=== PATIENT | female | born 1935 | race Caucasian/White ===

== ENCOUNTER 2022-12-16 23:04 | Inpatient (IN) ==
[2022-12-16] MEDS ORDERED: SODIUM CHLORIDE 0.9% 500 ML IV SCH (23:45)
[2022-12-16] MEDS ORDERED: ONDANSETRON INJ 2 MG/ML 2 ML VIAL IV STA (23:47)
[2022-12-16] MEDS ORDERED: MoRPHine SULFATE 4 MG/ML 1 ML CARP\\VIAL IV STA (23:47)
--- NOTE | 2022-12-17 00:03 | Emergency Department Note ---
Impression & Plan Fall, Abdominal pain, Low back pain, Closed head injury ED Provider Note CHIEF COMPLAINT: Fall HISTORY OF PRESENT ILLNESS: This 87-year-old female patient presents to the emergency department accompanied by her daughters for evaluation after a fall. Patient was bending over to adjust her pant leg when she tipped forward and fell. Unclear exactly how she landed when she fell or if she may have struck anything on the way down. The fall was witnessed by the , but he was uncertain of the details. The patient has been complaining of back and abdominal pain, particularly in her right side. She did strike her head. She is not on blood thinners or aspirin. She is complaining of soreness in her neck. The patient was ambulatory after the event but did need significant assistance from her daughters. The patient did take Tylenol prior to arrival in the emergency department. The fall occurred approximately 3 hours prior to evaluation. She has not recently been ill. She does have history of Alzheimer's and history is difficult to obtain. She denies any chest pain or shortness of breath. She has otherwise been in her usual state of health up until the fall tonight. REVIEW OF SYSTEMS: A 10 system review of systems was performed with positives and pertinent negatives listed in the history of present illness. All other systems were reviewed and are negative. ALLERGIES: Penicillin PHYSICAL EXAM: VITALS: Vitals are noted on the nurse's note and reviewed by myself. Vital signs stable. GENERAL: This is an 87-year-old female, in no acute distress, nondiaphoretic, well-developed well-nourished. SKIN: The skin was without rashes, erythema, edema, or bruising. There is no tenting of the skin. Capillary refill less than 2 seconds. HEAD: Normocephalic atraumatic. EARS: External auditory canals clear, tympanic membranes pearly mallory without erythema or effusion bilaterally. No hemotympanum. Negative goff sign. EYES: Pupils equal round and reactive to light and accommodation. Conjunctivae without injection, sclerae without icterus. Extraocular movements intact. No swelling or discoloration of the tissue surrounding the eyes. NOSE: Patent, turbinates without inflammation or discharge. No sinus tenderness. MOUTH: Mucous membranes moist. Tonsils are not enlarged. Pharynx without erythema or exudate. Uvula midline. Airway patent. Tongue does not deviate. NECK: Supple without nuchal rigidity. No lymphadenopathy. Cervical spine is tender. No JVD. HEART: Regular rate and rhythm without murmurs gallops or rubs. LUNGS: Clear to auscultation bilaterally without wheezes, rales or rhonchi. No retractions or accessory muscle use. ABDOMEN: Positive bowel sounds x 4. Diffuse abdominal tenderness to palpation. Abdomen is otherwise soft, without masses or organomegaly. Rodriguez sign negative. No guarding or rebound tenderness. MUSCULOSKELETAL: No muscle atrophy, erythema, or edema noted. Full range of motion without joint tenderness in all extremities. Tenderness of the lumbar spinous processes to palpation. Strength 5/5 throughout. NEURO: Patient was alert and oriented to person place and time. Normal sensation to light and sharp touch. Deep tendon reflexes 2+ throughout. No focal neurological deficits. EKG, per my interpretation: Normal sinus rhythm with sinus arrhythmia with a ventricular rate of [address] elevation or depression. No T wave inversion. No significant change when compared to EKG from 09/03/2022 EMERGENCY DEPARTMENT COURSE: The patient was seen and evaluated as above. Patient presents after a fall. She does have a history of dementia and history is difficult to elicit. She is complaining of severe abdominal and back pain. Due to the uncertain mechanism of the fall, I did recommend CT imaging to evaluate for intra-abdominal, intrathoracic, and intracranial abnormality. IV access obtained, labs drawn. Labs reviewed by myself. No leukocytosis, anemia, thrombocytopenia. Renal, hepatic function and electrolytes without significant abnormality. The patient and family members were agreeable. CT imaging was performed reviewed by myself and radiologist as noted. Patient has fractures of the right 11th and 12th ribs. Patient required 2 doses of IV morphine, lidocaine patch, in addition to the acetaminophen she had taken at home for pain control. I am concerned with sending the patient home that she will not do well due to the history of dementia and her current pain management requirements. I do feel that she would benefit from an inpatient stay for PT/OT eval, pain control, and ensuring she has a safe disposition. The patient and family members were agreeable with this plan. The patient will be admitted to the [facility] Hospitalist service. Please see hospitalist dictation regarding ongoing management care of this patient. I did discuss case with my attending physician. We were in agreement of the treatment plan. Differential diagnosis includes fracture, dislocation, contusion, intra- abdominal, pneumothorax, intrathoracic, intracranial, neurologic, compartment syndrome, rhabdomyolysis, as well as other pathologies. I attest that I have personally reviewed the patient's current medication list. Blood Pressure Screening: Patient was found to have a slightly elevated blood pressure due to circumstances. I do not believe that the patient requires hypertension monitoring. The chart was completed utilizing [employer] voice recognition software. Grammatical errors, random word insertions, pronoun errors, and incomplete sentences are an occasional consequence of this system due to software limitations, ambient noise, and hardware issues. Any formal questions or concerns about the content, text, or information contained within the body of this dictation should be directly addressed to the provider for clarification. Past Med/Surg History Medical History Dementia Hypothyroid Social History Smoking Status: Never smoker Preferred Language: Spanish Feels Safe at Home: Yes Allergies Allergies Allergy/AdvReac Type Severity Reaction Status Date / Time Penicillins Allergy Unknown CAN'T Verified 12/17/22 02:21 REMEMBER Home Meds Home Medications Medication Instructions Recorded Confirmed Melatonin Chew 1 tab PO HS 12/17/22 12/17/22 Metamucil Chew 1 tab PO DAILY 12/17/22 12/17/22 levothyroxine 88 mcg tablet 88 mcg PO DAILY 12/17/22 12/17/22 omeprazole 20 mg tablet,delayed 20 mg PO DAILY 12/17/22 12/17/22 release propranolol 60 mg capsule,24 60 mg PO QAM 12/17/22 12/17/22 hr,extended release Results & Data (ED) Vital Signs Vital Signs - 24 hr 12/16/22 23:17 12/16/22 23:37 12/17/22 00:10 Temperature 36.6 C Temperature Source Temporal Artery Scan Pulse Rate 65 63 58 L Pulse Rate [Apical] Respiratory Rate 20 19 19 Respiratory Effort / Characteristics Respiratory Depth Normal Respiratory Pattern Blood Pressure 187/99 H 164/105 H Blood Pressure [Right Arm] Blood Pressure Mean 128 124 Blood Pressure Mean [Right Arm] Pulse Oximetry 98 92 94 Oxygen Delivery Method Room Air Room Air Room Air Sepsis Recent Fever Within 48 Hours No Sepsis New/Unexplained Change in Mental Status No Sepsis Action Taken by Nursing No Action Required 12/17/22 00:20 12/17/22 00:50 12/17/22 01:10 Temperature Temperature Source Pulse Rate 64 64 66 Pulse Rate [Apical] Respiratory Rate 15 18 18 Respiratory Effort / Characteristics Respiratory Depth Respiratory Pattern Blood Pressure Blood Pressure [Right Arm] Blood Pressure Mean Blood Pressure Mean [Right Arm] Pulse Oximetry 92 96 92 Oxygen Delivery Method Room Air Room Air Room Air Sepsis Recent Fever Within 48 Hours Sepsis New/Unexplained Change in Mental Status Sepsis Action Taken by Nursing 12/17/22 01:30 12/17/22 02:00 12/17/22 02:40 Temperature Temperature Source Pulse Rate 65 65 Pulse Rate [Apical] 69 Respiratory Rate 17 17 16 Respiratory Effort / Characteristics Non-Labored Spontaneous Respiratory Depth Normal Respiratory Pattern Regular Blood Pressure Blood Pressure [Right Arm] 145/91 H Blood Pressure Mean Blood Pressure Mean [Right Arm] 109 Pulse Oximetry 92 96 Oxygen Delivery Method Room Air Room Air Sepsis Recent Fever Within 48 Hours Sepsis New/Unexplained Change in Mental Status Sepsis Action Taken by Nursing Laboratory Data 12/16/22 23:35 12/16/22 23:35 Lab Results 12/16/22 12/16/22 12/16/22 Range/Units 23:35 23:35 23:35 WBC 9.37 (4.8-10.8) K/ul RBC 5.08 (4.20-5.40) M/uL Hgb 15.8 (12.0-16.0) g/dl Hct 46.2 (37.0-47.0) % MCV 90.9 (80.0-100.0) fL MCH 31.1 (25.0-34.0) pg MCHC 34.2 (32.0-36.0) g/dL RDW Std Deviation 47.6 H (36.4-46.3) fL RDW Coeff of Les 14.2 (11.5-14.5) % Plt Count 240 (130-400) K/uL MPV 10.7 (9.4-12.4) fL Immature Gran % (Auto) 0.5 % Neut % (Auto) 52.8 % Lymph % (Auto) 31.8 % Garrett % (Auto) 12.9 % Eos % (Auto) 1.1 % Baso % (Auto) 0.9 % Neut # (Auto) 4.95 (1.40-6.50) K/uL Lymph # (Auto) 2.98 (1.2-3.4) K/uL Garrett # (Auto) 1.21 H (0.11-0.59) K/uL Eos # (Auto) 0.10 (0-0.50) K/uL Baso # (Auto) 0.08 (0-0.2) K/uL Immature Gran # (Auto) 0.05 (0.01-0.20) K/uL PT 10.6 (9.0-12.0) Seconds INR 1.0 (0.9-1.1) Sodium 138 (136-145) mmol/L Potassium 4.4 (3.5-5.1) mmol/L Chloride 104 (98-107) mmol/L Carbon Dioxide 25 (21-32) mmol/L Anion Gap 9 (3-11) BUN 22 (6-23) mg/dl Creatinine 0.91 (0.6-1.2) mg/dl Est Cr Clr Drug Dosing Not Reportable Est GFR ( Amer) 66.2 ml/min Est GFR (Non-Af Amer) 57.1 ml/min BUN/Creatinine Ratio 24.2 H (10-20) Glucose 114 H (70-99(Fasting)) mg/dl Calcium 9.6 (8.6-10.3) mg/dl Total Bilirubin 0.5 (0.2-1.0) mg/dl AST 19 (13-39) U/L ALT 14 (7-52) U/L Alkaline Phosphatase 72 (34-104) U/L Total Protein 7.4 (6.0-8.3) gm/dl Albumin 4.2 (3.4-5.0) gm/dl Globulin 3.2 (2.5-4.0) gm/dl Albumin/Globulin Ratio 1.3 (0.9-2) SARS-CoV-2, RNA, NAAT (NEGATIVE) 12/17/22 Range/Units 02:07 WBC (4.8-10.8) K/ul RBC (4.20-5.40) M/uL Hgb (12.0-16.0) g/dl Hct (37.0-47.0) % MCV (80.0-100.0) fL MCH (25.0-34.0) pg MCHC (32.0-36.0) g/dL RDW Std Deviation (36.4-46.3) fL RDW Coeff of Les (11.5-14.5) % Plt Count (130-400) K/uL MPV (9.4-12.4) fL Immature Gran % (Auto) % Neut % (Auto) % Lymph % (Auto) % Garrett % (Auto) % Eos % (Auto) % Baso % (Auto) % Neut # (Auto) (1.40-6.50) K/uL Lymph # (Auto) (1.2-3.4) K/uL Garrett # (Auto) (0.11-0.59) K/uL Eos # (Auto) (0-0.50) K/uL Baso # (Auto) (0-0.2) K/uL Immature Gran # (Auto) (0.01-0.20) K/uL PT (9.0-12.0) Seconds INR (0.9-1.1) Sodium (136-145) mmol/L Potassium (3.5-5.1) mmol/L Chloride (98-107) mmol/L Carbon Dioxide (21-32) mmol/L Anion Gap (3-11) BUN (6-23) mg/dl Creatinine (0.6-1.2) mg/dl Est Cr Clr Drug Dosing Est GFR ( Amer) ml/min Est GFR (Non-Af Amer) ml/min BUN/Creatinine Ratio (10-20) Glucose (70-99(Fasting)) mg/dl Calcium (8.6-10.3) mg/dl Total Bilirubin (0.2-1.0) mg/dl AST (13-39) U/L ALT (7-52) U/L Alkaline Phosphatase (34-104) U/L Total Protein (6.0-8.3) gm/dl Albumin (3.4-5.0) gm/dl Globulin (2.5-4.0) gm/dl Albumin/Globulin Ratio (0.9-2) SARS-CoV-2, RNA, NAAT NEGATIVE (NEGATIVE) Administered Medications Sodium Chloride (Nss 1000ml) 1,000 mls @ 50 mls/hr IV .Q20H STA Stop: 12/17/22 23:09 Last Admin: 12/17/22 03:35 Dose: 50 mls/hr Documented By: LAUREN Discontinued Medications Acetaminophen (Acetaminophen 325 Mg Tab) 650 mg PO ONE STA Stop: 12/17/22 03:14 Last Admin: 12/17/22 03:36 Dose: 650 mg Documented By: LAUREN Sodium Chloride (Nss) 500 mls @ 999 mls/hr IV .Q31M MARY Stop: 12/17/22 00:15 Last Infusion: 12/17/22 02:19 Dose: 0 mls/hr Documented By: Admin: 12/17/22 00:14 Dose: 999 mls/hr Documented By: KATELYN Ioversol (Optiray 320 100ml) 100 ml IV ONCE ONE Stop: 12/17/22 00:53 Last Admin: 12/17/22 00:52 Dose: 93 ml Documented By: JABARI Lidocaine (Lidocaine 5% 1 Patch) 1 patch TD NOW STA Stop: 12/17/22 01:31 Last Admin: 12/17/22 01:36 Dose: 1 patch Documented By: KATELYN Morphine Sulfate (Morphine Sulfate 4 Mg/Ml 1 Ml Carp\Vial) 2 mg IV NOW STA Stop: 12/16/22 23:48 Last Admin: 12/17/22 00:14 Dose: 2 mg Documented By: KATELYN Morphine Sulfate (Morphine Sulfate 2 Mg/Ml Carp) 2 mg IV NOW STA Stop: 12/17/22 01:32 Last Admin: 12/17/22 01:36 Dose: 2 mg Documented By: KATELYN Ondansetron HCl (Ondansetron Inj 2 Mg/Ml 2 Ml Vial) 4 mg IV NOW STA Stop: 12/16/22 23:48 Last Admin: 12/17/22 00:15 Dose: 4 mg Documented By: KATELYN Propranolol HCl (Propranolol Hcl 60 Mg [place]) 60 mg PO NOW STA Stop: 12/17/22 02:27 Last Admin: 12/17/22 03:35 Dose: 60 mg Documented By: LAUREN Imaging Data Radiologist's Impression: Abdomen/Pelvis CT 12/16/22 23:48 Exam(s): CT ABDOMEN + PELVIS With Contrast IV Amt: 93 ml optiray 320 EXAM: CT Abdomen and Pelvis With Intravenous Contrast CLINICAL HISTORY: Reason for exam: Trauma. TECHNIQUE: Axial computed tomography images of the abdomen and pelvis with intravenous contrast. CTDI is 13.99 mGy and DLP is 696.66 mGy-cm. Automated exposure control was utilized for the study. A dose lowering technique was utilized adhering to the principles of ALARA. CONTRAST: Patient received 93 ml optiray 320 of IV contrast COMPARISON: No relevant prior studies available. FINDINGS: Lung bases: Unremarkable. No mass. No consolidation. Mediastinum: Large hiatus hernia containing the majority of the stomach. ABDOMEN: Liver: No acute abnormality noted of the liver. Numerous calcified granulomas. Gallbladder and bile ducts: Unremarkable. No calcified stones. No ductal dilation. Pancreas: Unremarkable. No mass. No ductal dilation. Spleen: No splenomegaly. No acute abnormality noted of the spleen. Numerous calcified granulomas. Adrenals: Unremarkable. No mass. Kidneys and ureters: Unremarkable. No solid mass. No hydronephrosis. Stomach and bowel: Unremarkable. No obstruction. No mucosal thickening. PELVIS: Appendix: No findings to suggest acute appendicitis. Bladder: Unremarkable. No mass. Reproductive: Hysterectomy. ABDOMEN and PELVIS: Intraperitoneal space: Unremarkable. No free air. No significant fluid collection. Bones/joints: No acute fracture. No dislocation. Soft tissues: Unremarkable. Vasculature: Unremarkable. No abdominal aortic aneurysm. Lymph nodes: Unremarkable. No enlarged lymph nodes. IMPRESSION: No evidence of acute trauma to the abdomen and pelvis. Electronically signed by: Diomedes Hutchins MD 12/17/22 01:[address] 12/16/22 23:48 Exam(s): CT C SPINE EXAM: CT Cervical Spine Without Intravenous Contrast CLINICAL HISTORY: Reason for exam: Trauma. TECHNIQUE: Axial computed tomography images of the cervical spine without intravenous contrast. CTDI is 18.13 mGy and DLP is 328.79 mGy-cm. Automated exposure control was utilized for the study. A dose lowering technique was utilized adhering to the principles of ALARA. COMPARISON: No relevant prior studies available. FINDINGS: Vertebrae: Unremarkable. No acute fracture. No misalignment. Discs/spinal canal/neural foramina: Mild to moderate multilevel neural foraminal stenosis bilaterally. Advanced multilevel degenerative disc disease with extensive spur formation. Soft tissues: Unremarkable. IMPRESSION: No acute findings in the cervical spine. Electronically signed by: Diomedes Hutchins MD 12/17/22 01:[address] 12/16/22 23:48 Exam(s): CT CHEST With Contrast IV Amt: 93 ml optiray 320 EXAM: CT Chest With Intravenous Contrast CLINICAL HISTORY: Reason for exam: Trauma. TECHNIQUE: Axial computed tomography images of the chest with intravenous contrast. CTDI is 11.91 mGy and DLP is 408.51 mGy-cm. Automated exposure control was utilized for the study. A dose lowering technique was utilized adhering to the principles of ALARA. CONTRAST: Patient received 93 ml optiray 320 of IV contrast COMPARISON: No relevant prior studies available. FINDINGS: Lungs: Unremarkable. No mass. No consolidation. Pleural space: Unremarkable. No pneumothorax. No significant effusion. Heart: Unremarkable. No cardiomegaly. No significant pericardial effusion. No significant coronary artery calcifications. Mediastinum: Large hiatus hernia containing the majority of the stomach. Bones/joints: Acute fractures of the posterior right 11th and 12th ribs. Marked chronic deformity of the right humeral head and neck with probable chronic rotator cuff tear in the right shoulder. No dislocation. Soft tissues: Unremarkable. Vasculature: Unremarkable. No thoracic aortic aneurysm. Lymph nodes: Unremarkable. No enlarged lymph nodes. IMPRESSION: Acute fractures of the posterior 11th and 12th ribs on the right. No other evidence of acute trauma. Electronically signed by: Diomedes Hutchins MD 12/17/22 01:[address] 12/16/22 23:48 Exam(s): CT HEAD Without Contrast EXAM: CT Head Without Intravenous Contrast CLINICAL HISTORY: Reason for exam: Trauma. TECHNIQUE: Axial computed tomography images of the head/brain without intravenous contrast. CTDI is 36.43 mGy and DLP is 624.41 mGy-cm. Automated exposure control was utilized for the study. A dose lowering technique was utilized adhering to the principles of ALARA. COMPARISON: No relevant prior studies available. FINDINGS: Brain: Generalized cerebral volume loss and chronic, small vessel ischemic changes in the white matter. No acute edema, hemorrhage or abnormal mass-effect. Probable calcified 19 mm meningioma in the left frontoparietal region. Ventricles: The ventricles are prominent, likely on the basis of periventricular volume loss. Bones/joints: Unremarkable. No acute fracture. Soft tissues: Unremarkable. Sinuses: Unremarkable as visualized. No acute sinusitis. Mastoid air cells: Unremarkable as visualized. No mastoid effusion. IMPRESSION: No acute findings in the head/brain. Electronically signed by: Diomedes Hutchins MD 12/17/22 01:[address] 12/16/22 23:48 Exam(s): CT L SPINE With Contrast IV Amt: 93 ml optiray 320 EXAM: CT Lumbar Spine With Intravenous Contrast CLINICAL HISTORY: Reason for exam: Trauma. TECHNIQUE: Axial computed tomography images of the lumbar spine with intravenous contrast. CTDI is 13.99 mGy and DLP is 696.66 mGy-cm. Automated exposure control was utilized for the study. A dose lowering technique was utilized adhering to the principles of ALARA. CONTRAST: Patient received 93 ml optiray 320 of IV contrast COMPARISON: No relevant prior studies available. FINDINGS: Vertebrae: Moderate degree of lumbar levoscoliosis. Advanced degenerative arthropathy of the facet joints at multiple levels. Mild retrolisthesis of L1 on L2. Mild anterior spondylolisthesis of L4 on L5. No acute fracture. Discs/spinal canal/neural foramina: Advanced multilevel degenerative disc disease. No spinal canal stenosis. Soft tissues: Unremarkable. IMPRESSION: No acute findings in the lumbar spine. Electronically signed by: Diomedes Hutchins MD 12/17/22 01:[address] 12/16/22 23:48 Exam(s): CT T SPINE IV Amt: 93 ml optiray 320 EXAM: CT Thoracic Spine With Intravenous Contrast CLINICAL HISTORY: Reason for exam: Trauma. TECHNIQUE: Axial computed tomography images of the thoracic spine with intravenous contrast. CTDI is 11.91 mGy and DLP is 408.51 mGy-cm. Automated exposure control was utilized for the study. A dose lowering technique was utilized adhering to the principles of ALARA. CONTRAST: Patient received 93 ml optiray 320 of IV contrast COMPARISON: No relevant prior studies available. FINDINGS: Vertebrae: Unremarkable. No acute fracture. Discs/spinal canal/neural foramina: Moderate to advanced multilevel degenerative disc disease. No spinal canal stenosis. Ribs: Acute fractures of the posterior right 11th and 12th ribs. Soft tissues: Unremarkable. IMPRESSION: No acute findings in the thoracic spine. Acute fractures of the right posterior 11th and 12th ribs. Electronically signed by: Diomedes Hutchins MD 12/17/22 01:29 AM Discharge Plan Visit Data Chief Complaint: Fall Stated Complaint: SLIPPED AND FELL ED Provider: Khalif Dorado ED Midlevel Provider: Argelia Arroyo Discharge Problem: Fall, Abdominal pain, Low back pain, Closed head injury Patient Disposition: Admitted As Inpatient Forms Stand Alone Forms: My [facility], Virtual Emergency Department, Important Visit Information Prescriptions Prescriptions: No Action propranolol 60 mg capsule,extended release 24 hr 60 mg PO QAM levothyroxine 88 mcg Tablet 88 mcg PO DAILY omeprazole 20 mg Tablet,Delayed Release (Dr/Ec) 20 mg PO DAILY Melatonin Chew 1 tab PO HS Metamucil Chew 1 tab PO DAILY Referrals Referrals: Radha Roque, [Primary Care Provider] -
[2022-12-17 00:08] LABS: Basophils # (auto) 0.08 K/uL (0-0.2); Basophils % (auto) 0.9 %; Eosinophils % (auto) 1.1 %; Hematocrit (blood only) 46.2 % (37.0-47.0); Hemoglobin 15.8 g/dl (12.0-16.0); Immature Granulocytes # (auto) 0.05 K/uL (0.01-0.20); Immature Granulocytes % (auto) 0.5 %; Lymphocytes # (auto) 2.98 K/uL (1.2-3.4); Lymphocytes % (auto) 31.8 %; Mean Corpuscular Hemoglobin 31.1 pg (25.0-34.0); Mean Corpuscular Hgb Conc 34.2 g/dL (32.0-36.0); Mean Corpuscular Volume 90.9 fL (80.0-100.0); Mean Platelet Volume 10.7 fL (9.4-12.4); Monocytes # (auto) 1.21 K/uL (0.11-0.59); Monocytes % (auto) 12.9 %; Neutrophils # (auto) 4.95 K/uL (1.40-6.50); Neutrophils % (auto) 52.8 %; Platelet Count 240 K/uL (130-400); RDW Coefficient of Variation 14.2 % (11.5-14.5); RDW Standard Deviation 47.6 fL (36.4-46.3); Red Blood Count 5.08 M/uL (4.20-5.40); White Blood Count 9.37 K/ul (4.8-10.8)
[2022-12-17 00:11] LABS: Alanine Aminotransferase 14 U/L (7-52); Albumin Globulin Ratio 1.3 (0.9-2); Albumin Level 4.2 gm/dl (3.4-5.0); Alkaline Phosphatase 72 U/L (34-104); Anion Gap 9 (3-11); Aspartate Aminotransferase 19 U/L (13-39); BUN Creatinine Ratio 24.2 (10-20); Bilirubin,Total 0.5 mg/dl (0.2-1.0); Blood Urea Nitrogen 22 mg/dl (6-23); Calcium 9.6 mg/dl (8.6-10.3); Carbon Dioxide 25 mmol/L (21-32); Chloride 104 mmol/L (98-107); Est GFR (African American) 66.2 ml/min; Est GFR (Non-African American) 57.1 ml/min; Globulin 3.2 gm/dl (2.5-4.0); Glucose 114 mg/dl (70-99(Fasting)); Potassium 4.4 mmol/L (3.5-5.1); Sodium 138 mmol/L (136-145); Total Protein 7.4 gm/dl (6.0-8.3)
[2022-12-17 00:40] LABS: Prothrombin Time 10.6 Seconds (9.0-12.0)
[2022-12-17] MEDS ORDERED: OPTIRAY 320 100ml IV ONE (00:52)
--- NOTE | 2022-12-17 01:24 | CT Scan Report ---
Exam(s): CT HEAD Without Contrast EXAM: CT Head Without Intravenous Contrast CLINICAL HISTORY: Reason for exam: Trauma. TECHNIQUE: Axial computed tomography images of the head/brain without intravenous contrast. CTDI is 36.43 mGy and DLP is 624.41 mGy-cm. Automated exposure control was utilized for the study. A dose lowering technique was utilized adhering to the principles of ALARA. COMPARISON: No relevant prior studies available. FINDINGS: Brain: Generalized cerebral volume loss and chronic, small vessel ischemic changes in the white matter. No acute edema, hemorrhage or abnormal mass-effect. Probable calcified 19 mm meningioma in the left frontoparietal region. Ventricles: The ventricles are prominent, likely on the basis of periventricular volume loss. Bones/joints: Unremarkable. No acute fracture. Soft tissues: Unremarkable. Sinuses: Unremarkable as visualized. No acute sinusitis. Mastoid air cells: Unremarkable as visualized. No mastoid effusion. IMPRESSION: No acute findings in the head/brain. Electronically signed by: Diomedes Hutchins MD 12/17/22 01:24 AM
--- NOTE | 2022-12-17 01:26 | CT Scan Report ---
Exam(s): CT C SPINE EXAM: CT Cervical Spine Without Intravenous Contrast CLINICAL HISTORY: Reason for exam: Trauma. TECHNIQUE: Axial computed tomography images of the cervical spine without intravenous contrast. CTDI is 18.13 mGy and DLP is 328.79 mGy-cm. Automated exposure control was utilized for the study. A dose lowering technique was utilized adhering to the principles of ALARA. COMPARISON: No relevant prior studies available. FINDINGS: Vertebrae: Unremarkable. No acute fracture. No misalignment. Discs/spinal canal/neural foramina: Mild to moderate multilevel neural foraminal stenosis bilaterally. Advanced multilevel degenerative disc disease with extensive spur formation. Soft tissues: Unremarkable. IMPRESSION: No acute findings in the cervical spine. Electronically signed by: Diomedes Hutchins MD 12/17/22 01:25 AM
[2022-12-17] MEDS ORDERED: LIDOCAINE 5% 1 PATCH TD STA (01:30)
--- NOTE | 2022-12-17 01:30 | CT Scan Report ---
Exam(s): CT T SPINE IV Amt: 93 ml optiray 320 EXAM: CT Thoracic Spine With Intravenous Contrast CLINICAL HISTORY: Reason for exam: Trauma. TECHNIQUE: Axial computed tomography images of the thoracic spine with intravenous contrast. CTDI is 11.91 mGy and DLP is 408.51 mGy-cm. Automated exposure control was utilized for the study. A dose lowering technique was utilized adhering to the principles of ALARA. CONTRAST: Patient received 93 ml optiray 320 of IV contrast COMPARISON: No relevant prior studies available. FINDINGS: Vertebrae: Unremarkable. No acute fracture. Discs/spinal canal/neural foramina: Moderate to advanced multilevel degenerative disc disease. No spinal canal stenosis. Ribs: Acute fractures of the posterior right 11th and 12th ribs. Soft tissues: Unremarkable. IMPRESSION: No acute findings in the thoracic spine. Acute fractures of the right posterior 11th and 12th ribs. Electronically signed by: Diomedes Hutchins MD 12/17/22 01:29 AM
[2022-12-17] MEDS ORDERED: MoRPHine SULFATE 2 MG/ML CARP IV STA (01:31)
--- NOTE | 2022-12-17 01:34 | CT Scan Report ---
Exam(s): CT L SPINE With Contrast IV Amt: 93 ml optiray 320 EXAM: CT Lumbar Spine With Intravenous Contrast CLINICAL HISTORY: Reason for exam: Trauma. TECHNIQUE: Axial computed tomography images of the lumbar spine with intravenous contrast. CTDI is 13.99 mGy and DLP is 696.66 mGy-cm. Automated exposure control was utilized for the study. A dose lowering technique was utilized adhering to the principles of ALARA. CONTRAST: Patient received 93 ml optiray 320 of IV contrast COMPARISON: No relevant prior studies available. FINDINGS: Vertebrae: Moderate degree of lumbar levoscoliosis. Advanced degenerative arthropathy of the facet joints at multiple levels. Mild retrolisthesis of L1 on L2. Mild anterior spondylolisthesis of L4 on L5. No acute fracture. Discs/spinal canal/neural foramina: Advanced multilevel degenerative disc disease. No spinal canal stenosis. Soft tissues: Unremarkable. IMPRESSION: No acute findings in the lumbar spine. Electronically signed by: Diomedes Hutchins MD 12/17/22 01:33 AM
--- NOTE | 2022-12-17 01:37 | CT Scan Report ---
Exam(s): CT CHEST With Contrast IV Amt: 93 ml optiray 320 EXAM: CT Chest With Intravenous Contrast CLINICAL HISTORY: Reason for exam: Trauma. TECHNIQUE: Axial computed tomography images of the chest with intravenous contrast. CTDI is 11.91 mGy and DLP is 408.51 mGy-cm. Automated exposure control was utilized for the study. A dose lowering technique was utilized adhering to the principles of ALARA. CONTRAST: Patient received 93 ml optiray 320 of IV contrast COMPARISON: No relevant prior studies available. FINDINGS: Lungs: Unremarkable. No mass. No consolidation. Pleural space: Unremarkable. No pneumothorax. No significant effusion. Heart: Unremarkable. No cardiomegaly. No significant pericardial effusion. No significant coronary artery calcifications. Mediastinum: Large hiatus hernia containing the majority of the stomach. Bones/joints: Acute fractures of the posterior right 11th and 12th ribs. Marked chronic deformity of the right humeral head and neck with probable chronic rotator cuff tear in the right shoulder. No dislocation. Soft tissues: Unremarkable. Vasculature: Unremarkable. No thoracic aortic aneurysm. Lymph nodes: Unremarkable. No enlarged lymph nodes. IMPRESSION: Acute fractures of the posterior 11th and 12th ribs on the right. No other evidence of acute trauma. Electronically signed by: Diomedes Hutchins MD 12/17/22 01:36 AM
--- NOTE | 2022-12-17 01:40 | CT Scan Report ---
Exam(s): CT ABDOMEN + PELVIS With Contrast IV Amt: 93 ml optiray 320 EXAM: CT Abdomen and Pelvis With Intravenous Contrast CLINICAL HISTORY: Reason for exam: Trauma. TECHNIQUE: Axial computed tomography images of the abdomen and pelvis with intravenous contrast. CTDI is 13.99 mGy and DLP is 696.66 mGy-cm. Automated exposure control was utilized for the study. A dose lowering technique was utilized adhering to the principles of ALARA. CONTRAST: Patient received 93 ml optiray 320 of IV contrast COMPARISON: No relevant prior studies available. FINDINGS: Lung bases: Unremarkable. No mass. No consolidation. Mediastinum: Large hiatus hernia containing the majority of the stomach. ABDOMEN: Liver: No acute abnormality noted of the liver. Numerous calcified granulomas. Gallbladder and bile ducts: Unremarkable. No calcified stones. No ductal dilation. Pancreas: Unremarkable. No mass. No ductal dilation. Spleen: No splenomegaly. No acute abnormality noted of the spleen. Numerous calcified granulomas. Adrenals: Unremarkable. No mass. Kidneys and ureters: Unremarkable. No solid mass. No hydronephrosis. Stomach and bowel: Unremarkable. No obstruction. No mucosal thickening. PELVIS: Appendix: No findings to suggest acute appendicitis. Bladder: Unremarkable. No mass. Reproductive: Hysterectomy. ABDOMEN and PELVIS: Intraperitoneal space: Unremarkable. No free air. No significant fluid collection. Bones/joints: No acute fracture. No dislocation. Soft tissues: Unremarkable. Vasculature: Unremarkable. No abdominal aortic aneurysm. Lymph nodes: Unremarkable. No enlarged lymph nodes. IMPRESSION: No evidence of acute trauma to the abdomen and pelvis. Electronically signed by: Diomedes Hutchins MD 12/17/22 01:39 AM
[2022-12-17] MEDS ORDERED: PROPRANOLOL HCL 60 MG LA CAP PO STA (02:26)
--- NOTE | 2022-12-17 02:54 | History & Physical Report ---
Date of Service December 17, 2022 Assessment & Plan (1) Asymptomatic hypertensive urgency: Plan: Secondary to traumatic right rib fractures secondary to mechanical fall Possible ambulatory dysfunction hx dementia mood disorder at baseline hypothyroidism, euthyroid as recent outpatient TSH from August 2022 prediabetes, hemoglobin A1c of 5.23 September 2022 OBS Medical telemetry analgesia Incentive spirometry Facilitate a.m. dose propranolol Delirium precautions PT OT eval DVT prophylaxis with Lovenox subcu Full code for now until able to confirm with patient's in a.m. as per daughters' request. (Mr. Diomedes Mejia, contact #[phone]) Text document was generated using [employer] voice recognition software. It may contain grammatical or spelling errors. Kindly contact undersigned for clarification of any documentation item in question. History of Present Illness Chief Complaint: Fall, right-sided chest pain Primary Care Provider: Radha Roque, History obtained from patient, family, and records. Limited history from patient secondary to dementia. Medical history significant for hypertension, dementia, mood disorder, hypothyroidism, prediabetes. Patient fell at home last night in her bedroom. May have tripped/tangled herself on her pajamas as per family. Episode witnessed by patient's . Possible head trauma without LOC. No syncope. Achy right-sided chest/back pain. Patient brought to the ER for evaluation. Highest SBP of 180s noted at the ER. Medical History as above Surgical History : Botox injections for eyelids, dental surgery, BTL, AMRIK, cataract surgery, carpal tunnel release Family History : Heart disease, DM, colon cancer, leukemia, COPD, stroke Personal/Social history : Non-smoker, no EtOH intake, retired [employer] employee Allergies Allergy/AdvReac Type Severity Reaction Status Date / Time Penicillins Allergy Unknown CAN'T Verified 12/17/22 02:21 REMEMBER Home Medications Medication Instructions Recorded Confirmed Type Melatonin Chew 1 tab PO HS 12/17/22 12/17/22 History Metamucil Chew 1 tab PO DAILY 12/17/22 12/17/22 History levothyroxine 88 mcg tablet 88 mcg PO DAILY 12/17/22 12/17/22 History omeprazole 20 mg tablet,delayed 20 mg PO DAILY 12/17/22 12/17/22 History release propranolol 60 mg capsule,24 60 mg PO QAM 12/17/22 12/17/22 History hr,extended release Past Med/Surg History Medical History Dementia Hypothyroid Social History Smoking Status: Never smoker Second Hand Exposure: No; Do You Dip or Chew Tobacco: No; Tobacco Cessation Education Requested by Patient: No Hx Alcohol Use: No Hx Substance Use: No Preferred Language: Greek Communication Ability: Impaired Bilingual Kindergarten Teacher Required: No Beliefs That Will Affect Care: None Current Living Situation: Spouse Other Information That Helps Us Care for You: No Feels Safe at Home: Yes Safety Concerns: Feels Safe At This Time Assistive Devices: Walker Review of Systems Review of Systems: Could not be reliably obtained secondary to dementia Physical Exam Physical Exam: GENERAL: Comfortable, pleasantly demented, no respiratory distress SKIN: Normal color, warm HEENT: [place] palpebral conjunctivae, right upper eyelid erythema, dry buccal mucosa NECK : Supple, no tenderness CHEST : CTA, right chest wall tenderness HEART : RRR, no obvious murmurs ABDOMEN: no distention, nontender EXTREMITIES : No LE swelling/tenderness, no other conspicuous deformities noted NEUROLOGIC : Demented, no facial asymmetry, involuntary twitching of the left upper and lower eyelids, No other gross focality Results & Data Results & Data Vital Signs (Past 12 Hours) Vital Signs Temp Pulse Pulse Resp BP BP Pulse Ox 12/17/22 02:40 69 16 145/91 H 96 12/17/22 02:00 65 17 12/17/22 01:30 65 17 92 12/17/22 01:10 66 18 92 12/17/22 00:50 64 18 96 12/17/22 00:20 64 15 92 12/17/22 00:10 58 L 19 94 12/16/22 23:37 63 19 164/105 H 92 12/16/22 23:17 36.6 C 65 20 187/99 H 98 O2 Del Method 12/17/22 02:40 Room Air 12/17/22 02:00 12/17/22 01:30 Room Air 12/17/22 01:10 Room Air 12/17/22 00:50 Room Air 12/17/22 00:20 Room Air 12/17/22 00:10 Room Air 12/16/22 23:37 Room Air 12/16/22 23:17 Room Air Laboratory Results Laboratory Results WBC 9.37 K/ul (4.8-10.8) 12/16/22 23:35 RBC 5.08 M/uL (4.20-5.40) 12/16/22 23:35 Hgb 15.8 g/dl (12.0-16.0) 12/16/22 23: Hct 46.2 % (37.0-47.0) 12/16/22 23: MCV 90.9 fL (80.0-100.0) 12/16/22 23: MCH 31.1 pg (25.0-34.0) 12/16/22 23: MCHC 34.2 g/dL (32.0-36.0) 12/16/22 23:35 RDW Std Deviation 47.6 fL (36.4-46.3) H 12/16/22 23: RDW Coeff of Les 14.2 % (11.5-14.5) 12/16/22 23:35 Plt Count 240 K/uL (130-400) 12/16/22 23: MPV 10.7 fL (9.4-12.4) 12/16/22 23:35 Immature Gran % (Auto) 0.5 % 12/16/22 23:35 Neut % (Auto) 52.8 % 12/16/22 23:35 Lymph % (Auto) 31.8 % 12/16/22 23:35 Dickson % (Auto) 12.9 % 12/16/22 23:35 Eos % (Auto) 1.1 % 12/16/22 23:35 Baso % (Auto) 0.9 % 12/16/22 23:35 Neut # (Auto) 4.95 K/uL (1.40-6.50) 12/16/22 23:35 Lymph # (Auto) 2.98 K/uL (1.2-3.4) 12/16/22 23:35 Dickson # (Auto) 1.21 K/uL (0.11-0.59) H 12/16/22 23:35 Eos # (Auto) 0.10 K/uL (0-0.50) 12/16/22 23:35 Baso # (Auto) 0.08 K/uL (0-0.2) 12/16/22 23:35 Immature Gran # (Auto) 0.05 K/uL (0.01-0.20) 12/16/22 23:35 PT 10.6 Seconds (9.0-12.0) 12/16/22 23:35 INR 1.0 (0.9-1.1) 12/16/22 23:35 Sodium 138 mmol/L (136-145) 12/16/22 23:35 Potassium 4.4 mmol/L (3.5-5.1) 12/16/22 23:35 Chloride 104 mmol/L (98-107) 12/16/22 23:35 Carbon Dioxide 25 mmol/L (21-32) 12/16/22 23:35 Anion Gap 9 (3-11) 12/16/22 23:35 BUN 22 mg/dl (6-23) 12/16/22 23:35 Creatinine 0.91 mg/dl (0.6-1.2) 12/16/22 23:35 Est Cr Clr Drug Dosing Not Reportable 12/16/22 23:35 Est GFR ( Amer) 66.2 ml/min 12/16/22 23:35 Est GFR (Non-Af Amer) 57.1 ml/min 12/16/22 23:35 BUN/Creatinine Ratio 24.2 (10-20) H 12/16/22 23:35 Glucose 114 mg/dl (70-99(Fasting)) H 12/16/22 23:35 Calcium 9.6 mg/dl (8.6-10.3) 12/16/22 23:35 Total Bilirubin 0.5 mg/dl (0.2-1.0) 12/16/22 23:35 AST 19 U/L (13-39) 12/16/22 23:35 ALT 14 U/L (7-52) 12/16/22 23:35 Alkaline Phosphatase 72 U/L (34-104) 12/16/22 23:35 Total Protein 7.4 gm/dl (6.0-8.3) 12/16/22 23:35 Albumin 4.2 gm/dl (3.4-5.0) 12/16/22 23:35 Globulin 3.2 gm/dl (2.5-4.0) 12/16/22 23:35 Albumin/Globulin Ratio 1.3 (0.9-2) 12/16/22 23:35 SARS-CoV-2, RNA, NAAT NEGATIVE (NEGATIVE) 12/17/22 02:07 Impressions Abdomen/Pelvis CT 12/16/22 23:48 Exam(s): CT ABDOMEN + PELVIS With Contrast IV Amt: 93 ml optiray 320 EXAM: CT Abdomen and Pelvis With Intravenous Contrast CLINICAL HISTORY: Reason for exam: Trauma. TECHNIQUE: Axial computed tomography images of the abdomen and pelvis with intravenous contrast. CTDI is 13.99 mGy and DLP is 696.66 mGy-cm. Automated exposure control was utilized for the study. A dose lowering technique was utilized adhering to the principles of ALARA. CONTRAST: Patient received 93 ml optiray 320 of IV contrast COMPARISON: No relevant prior studies available. FINDINGS: Lung bases: Unremarkable. No mass. No consolidation. Mediastinum: Large hiatus hernia containing the majority of the stomach. ABDOMEN: Liver: No acute abnormality noted of the liver. Numerous calcified granulomas. Gallbladder and bile ducts: Unremarkable. No calcified stones. No ductal dilation. Pancreas: Unremarkable. No mass. No ductal dilation. Spleen: No splenomegaly. No acute abnormality noted of the spleen. Numerous calcified granulomas. Adrenals: Unremarkable. No mass. Kidneys and ureters: Unremarkable. No solid mass. No hydronephrosis. Stomach and bowel: Unremarkable. No obstruction. No mucosal thickening. PELVIS: Appendix: No findings to suggest acute appendicitis. Bladder: Unremarkable. No mass. Reproductive: Hysterectomy. ABDOMEN and PELVIS: Intraperitoneal space: Unremarkable. No free air. No significant fluid collection. Bones/joints: No acute fracture. No dislocation. Soft tissues: Unremarkable. Vasculature: Unremarkable. No abdominal aortic aneurysm. Lymph nodes: Unremarkable. No enlarged lymph nodes. IMPRESSION: No evidence of acute trauma to the abdomen and pelvis. Electronically signed by: Diomedes Hutchins MD 12/17/22 01:[address] 12/16/22 23:48 Exam(s): CT C SPINE EXAM: CT Cervical Spine Without Intravenous Contrast CLINICAL HISTORY: Reason for exam: Trauma. TECHNIQUE: Axial computed tomography images of the cervical spine without intravenous contrast. CTDI is 18.13 mGy and DLP is 328.79 mGy-cm. Automated exposure control was utilized for the study. A dose lowering technique was utilized adhering to the principles of ALARA. COMPARISON: No relevant prior studies available. FINDINGS: Vertebrae: Unremarkable. No acute fracture. No misalignment. Discs/spinal canal/neural foramina: Mild to moderate multilevel neural foraminal stenosis bilaterally. Advanced multilevel degenerative disc disease with extensive spur formation. Soft tissues: Unremarkable. IMPRESSION: No acute findings in the cervical spine. Electronically signed by: Diomedes Hutchins MD 12/17/22 01:[address] 12/16/22 23:48 Exam(s): CT CHEST With Contrast IV Amt: 93 ml optiray 320 EXAM: CT Chest With Intravenous Contrast CLINICAL HISTORY: Reason for exam: Trauma. TECHNIQUE: Axial computed tomography images of the chest with intravenous contrast. CTDI is 11.91 mGy and DLP is 408.51 mGy-cm. Automated exposure control was utilized for the study. A dose lowering technique was utilized adhering to the principles of ALARA. CONTRAST: Patient received 93 ml optiray 320 of IV contrast COMPARISON: No relevant prior studies available. FINDINGS: Lungs: Unremarkable. No mass. No consolidation. Pleural space: Unremarkable. No pneumothorax. No significant effusion. Heart: Unremarkable. No cardiomegaly. No significant pericardial effusion. No significant coronary artery calcifications. Mediastinum: Large hiatus hernia containing the majority of the stomach. Bones/joints: Acute fractures of the posterior right 11th and 12th ribs. Marked chronic deformity of the right humeral head and neck with probable chronic rotator cuff tear in the right shoulder. No dislocation. Soft tissues: Unremarkable. Vasculature: Unremarkable. No thoracic aortic aneurysm. Lymph nodes: Unremarkable. No enlarged lymph nodes. IMPRESSION: Acute fractures of the posterior 11th and 12th ribs on the right. No other evidence of acute trauma. Electronically signed by: Diomedes Hutchins MD 12/17/22 01:[address] 12/16/22 23:48 Exam(s): CT HEAD Without Contrast EXAM: CT Head Without Intravenous Contrast CLINICAL HISTORY: Reason for exam: Trauma. TECHNIQUE: Axial computed tomography images of the head/brain without intravenous contrast. CTDI is 36.43 mGy and DLP is 624.41 mGy-cm. Automated exposure control was utilized for the study. A dose lowering technique was utilized adhering to the principles of ALARA. COMPARISON: No relevant prior studies available. FINDINGS: Brain: Generalized cerebral volume loss and chronic, small vessel ischemic changes in the white matter. No acute edema, hemorrhage or abnormal mass-effect. Probable calcified 19 mm meningioma in the left frontoparietal region. Ventricles: The ventricles are prominent, likely on the basis of periventricular volume loss. Bones/joints: Unremarkable. No acute fracture. Soft tissues: Unremarkable. Sinuses: Unremarkable as visualized. No acute sinusitis. Mastoid air cells: Unremarkable as visualized. No mastoid effusion. IMPRESSION: No acute findings in the head/brain. Electronically signed by: Diomedes Hutchins MD 12/17/22 01:[address] 12/16/22 23:48 Exam(s): CT L SPINE With Contrast IV Amt: 93 ml optiray 320 EXAM: CT Lumbar Spine With Intravenous Contrast CLINICAL HISTORY: Reason for exam: Trauma. TECHNIQUE: Axial computed tomography images of the lumbar spine with intravenous contrast. CTDI is 13.99 mGy and DLP is 696.66 mGy-cm. Automated exposure control was utilized for the study. A dose lowering technique was utilized adhering to the principles of ALARA. CONTRAST: Patient received 93 ml optiray 320 of IV contrast COMPARISON: No relevant prior studies available. FINDINGS: Vertebrae: Moderate degree of lumbar levoscoliosis. Advanced degenerative arthropathy of the facet joints at multiple levels. Mild retrolisthesis of L1 on L2. Mild anterior spondylolisthesis of L4 on L5. No acute fracture. Discs/spinal canal/neural foramina: Advanced multilevel degenerative disc disease. No spinal canal stenosis. Soft tissues: Unremarkable. IMPRESSION: No acute findings in the lumbar spine. Electronically signed by: Diomedes Hutchins MD 12/17/22 01:[address] 12/16/22 23:48 Exam(s): CT T SPINE IV Amt: 93 ml optiray 320 EXAM: CT Thoracic Spine With Intravenous Contrast CLINICAL HISTORY: Reason for exam: Trauma. TECHNIQUE: Axial computed tomography images of the thoracic spine with intravenous contrast. CTDI is 11.91 mGy and DLP is 408.51 mGy-cm. Automated exposure control was utilized for the study. A dose lowering technique was utilized adhering to the principles of ALARA. CONTRAST: Patient received 93 ml optiray 320 of IV contrast COMPARISON: No relevant prior studies available. FINDINGS: Vertebrae: Unremarkable. No acute fracture. Discs/spinal canal/neural foramina: Moderate to advanced multilevel degenerative disc disease. No spinal canal stenosis. Ribs: Acute fractures of the posterior right 11th and 12th ribs. Soft tissues: Unremarkable. IMPRESSION: No acute findings in the thoracic spine. Acute fractures of the right posterior 11th and 12th ribs. Electronically signed by: Diomedes Hutchins MD 12/17/22 01:29 AM Diagnostic Findings EKG as per my interpretation : Rate 60, NSR, LAD, LAFB, T wave flattening inferior leads
[2022-12-17] MEDS ORDERED: ACETAMINOPHEN 325 MG TAB PO PRN (02:58)
[2022-12-17] MEDS ORDERED: PROMETHAZINE HCL 6.25 MG in SODIUM CHLORIDE 0.9% 50 ML IV PRN (02:59)
[2022-12-17] MEDS ORDERED: SODIUM CHLORIDE 0.9% 1000ML 1,000 ML IV STA (03:10)
[2022-12-17] MEDS ORDERED: ACETAMINOPHEN 325 MG TAB PO STA (03:13)
[2022-12-17] MEDS: OLANZapine 10 MG/2.1 ML SDV IM PRN ×2 (04:16→20:40)
[2022-12-17] MEDS: MoRPHine SULFATE 2 MG/ML CARP IV PRN ×2 (06:36→22:57)
[2022-12-17] MEDS: LEVOTHYROXINE SODIUM 88 MCG TABLET PO SCH (07:09)
[2022-12-17 07:41] LABS: Appearance Urine Cloudy (Clear); Bilirubin Urine Negative (Negative); Blood Urine 2+ (Negative); Color Urine Yellow; Glucose Urine UA Negative (Negative); Ketones Urine Negative (Negative); Leukocyte Esterase Urine 3+ (Negative); Nitrite Urine Positive (Negative); Protein Urine 1+ (Negative); Specific Gravity Urine <= 1.005 (1.000-1.030); Urobilinogen Urine Negative (Negative); pH Urine 5.5 (4.5-7.5)
[2022-12-17 07:58] LABS: RBC Urine 0-4 /hpf (0-4); WBC Urine >30 /hpf (0-5)
[2022-12-17 07:59] LABS: Bacteria Urine 2+ (Negative)
[2022-12-17] MEDS: ENOXAPARIN INJ 30 MG/0.3 ML SYR SQ SCH (08:00)
[2022-12-17] MEDS: PANTOprazole 40 MG TAB PO SCH (08:00)
[2022-12-17] MEDS ORDERED: METAMUCIL PO SCH (09:00)
[2022-12-17] MEDS: ACETAMINOPHEN 325 MG TAB PO SCH ×3 (11:22→22:28)
[2022-12-17] MEDS: cefTRIAXone SODIUM 2,000 MG in DEXTROSE 5% 50 ML IV SCH (11:22)
[2022-12-17] MEDS ORDERED: ACETAMINOPHEN 325 MG TAB PO SCH (14:00)
--- NOTE | 2022-12-17 15:58 | CT Scan Report ---
HEAD CT NONCONTRAST CT DOSE: 547.75 mGy.cm HISTORY: Stroke symptoms. stroke alert TECHNIQUE: Multiaxial CT images of the head were performed without the use of intravenous contrast. A utomated exposure control was utilized for this study. A dose lowering technique was utilized adheri ng to the principles of ALARA. Comparison: Head CT 12/17/2022. Findings: Mild mucosal thickening within the left sphenoid sinus. The mastoid air cells are clear. Ca lcified 18 mm lesion within the left high convexity likely representing a meningioma. This remains un changed. The calvarium and skull base are intact. Atrophy and microvascular ischemic changes are agai n noted. There is no hematoma, midline shift, acute infarct. Stable prominent perivascular space infe rior to the left basal ganglia. Impression: No significant change compared to the prior study. No acute intracranial abnormality. ACT 112: Negative or not required by law. Electronically signed by: Ervin Valente M.D. 12/17/2022 3:57 PM
[2022-12-17 16:17] LABS: Hematocrit (blood only) 41.3 % (37.0-47.0); Hemoglobin 13.8 g/dl (12.0-16.0); Mean Corpuscular Hemoglobin 30.9 pg (25.0-34.0); Mean Corpuscular Hgb Conc 33.4 g/dL (32.0-36.0); Mean Corpuscular Volume 92.4 fL (80.0-100.0); Mean Platelet Volume 10.9 fL (9.4-12.4); Platelet Count 176 K/uL (130-400); RDW Coefficient of Variation 14.3 % (11.5-14.5); RDW Standard Deviation 48.3 fL (36.4-46.3); Red Blood Count 4.47 M/uL (4.20-5.40)
[2022-12-17 16:29] LABS: Partial Thromboplastin Time 29.1 Seconds (21.0-31.0)
[2022-12-17 16:37] LABS: Calcium 8.7 mg/dl (8.6-10.3); Creatinine Clr Calc Pharmacy 38.7 ml/min; Est GFR (African American) 83.7 ml/min; Est GFR (Non-African American) 72.2 ml/min; Phosphorus 4.4 mg/dl (2.5-4.9)
[2022-12-17 17:04] LABS: Vitamin B12 314 pg/ml (180-914)
--- NOTE | 2022-12-17 18:52 | Hospitalist Progress Note ---
Date of Service December 17, 2022 Assessment & Plan (1) Acute cystitis without hematuria: (2) Alzheimer's dementia: (3) Right rib fracture: (4) Fall: Plan 87-year-old female with history of dementia presented with fall and right rib fracture UTI-UA suggestive of infection. Also symptomatic per daughter at bedside. Started on Rocephin D1/5 pending urine culture result Fall with right rib fractures-[place] [facility] with no acute abnormality or fractures except for acute fracture of right posterior 11th and 12th rib. Patient denies pain during my encounter. Continue Lidoderm patch, Tylenol, incentive spirometer. Discussed with family at bedside regarding need for encouraging spirometer and deep breaths. PT OT evaluation pending Alzheimer's dementia-seen by neurology as outpatient, it was felt that addition of any medication like Aricept or Namenda would be futile. Not on any meds. Currently at baseline. Delirium precautions Hypothyroidism, acquired-continue Synthroid. DVT prophylaxis-subcu Lovenox Disposition-pending urine culture results and PT OT evaluation. Family interested in rehab Updated and daughter at bedside Admission and Anticipated Discharge Date Admission Date: December 17, 2022 Subjective Patient was seen and examined at bedside in presence of daughter and . Patient was sleeping earlier this morning during my encounter. Family stated she had a rough night and did not get much sleep. Later in the day, RN felt patient had acute change in the status with being less responsive, left eye twitching and may be subtle facial droop and called stroke alert. I evaluated patient at bedside and talked with her , who felt this is an unusual for the patient at home. Also stated her left eye twitching is chronic. Patient was already awake, alert, responsive and at baseline while I was at bedside. CT head was done for completeness which did not show any acute bleed or acute changes. Patient was evaluated again later and was completed baseline without any new neurological changes. She was awake, alert, responding appropriately, following commands, moving all extremities. Strength intact. Could not appreciate the facial droop much. No indication for pursuing additional stroke work-up at this time. Her was visibly upset with the whole thing and was reassured/comforted. He was much relieved after she came back from the CT scan. I also called her daughter Byron over the phone and provided an update Review of Systems Review of Systems: All systems reviewed & are unremarkable except as noted in Subjective Physical Exam Physical Exam: General: Frail elderly female, sitting comfortably in bed, her feeding her dinner, not in distress, on room air HEENT: PILY, MMM. Intermittent left eye twitching which is chronic Chest: Clear breath sounds bilaterally, no wheezes or crackles CVS: Regular rate and rhythm, normal heart sounds, no murmur Abdomen: Soft, non tender, not distended, normal bowel sounds Neuro: Awake, alert, oriented, conversing well, non focal Extremities: No cyanosis, clubbing or edema Results & Data Results & Data Vital Signs (Past 12 Hours) Vital Signs Temp Pulse Pulse Resp BP Pulse Ox O2 Del Method 12/17/22 15:35 36.7 C 70 17 133/74 95 Room Air 12/17/22 14:46 67 12/17/22 12:27 37.2 C 71 18 148/81 H 96 Room Air 12/17/22 09:53 65 12/17/22 07:20 36.7 C 64 18 152/94 H 99 Room Air Laboratory Results Short CBC 12/16/22 12/17/22 Range/Units 23:35 15:35 WBC 9.37 9.10 (4.8-10.8) K/ul Hgb 15.8 13.8 (12.0-16.0) g/dl Hct 46.2 41.3 (37.0-47.0) % Plt Count 240 176 (130-400) K/uL BMP 12/16/22 12/17/22 23:35 15:35 Sodium 138 139 Potassium 4.4 4.0 Chloride 104 108 H Carbon Dioxide 25 23 BUN 22 18 Creatinine 0.91 0.75 Glucose 114 H 90 Calcium 9.6 8.7 Liver Function 12/16/22 Range/Units 23:35 Total Bilirubin 0.5 (0.2-1.0) mg/dl AST 19 (13-39) U/L ALT 14 (7-52) U/L Alkaline Phosphatase 72 (34-104) U/L Albumin 4.2 (3.4-5.0) gm/dl Urine 12/17/22 Range/Units Unknown Urine Color Yellow Urine Appearance Cloudy A (Clear) Urine pH 5.5 (4.5-7.5) Ur Specific [place] <= 1.005 (1.000-1.030) Urine Protein 1+ H (Negative) Urine Glucose (UA) Negative (Negative) Diagnostic Findings Head CT 12/17/22 15:[address] DOSE: 547.75 mGy.cm HISTORY: Stroke symptoms. stroke alert TECHNIQUE: Multiaxial CT images of the head were performed without the use of intravenous contrast. Automated exposure control was utilized for this study. A dose lowering technique was utilized adhering to the principles of ALARA. Comparison: Head CT 12/17/2022. Findings: Mild mucosal thickening within the left sphenoid sinus. The mastoid air cells are clear. Calcified 18 mm lesion within the left high convexity likely representing a meningioma. This remains unchanged. The calvarium and skull base are intact. Atrophy and microvascular ischemic changes are again noted. There is no hematoma, midline shift, acute infarct. Stable prominent perivascular space inferior to the left basal ganglia. Impression: No significant change compared to the prior study. No acute intracranial abnormality. ACT 112: Negative or not required by law. Electronically signed by: Ervin Valente M.D. 12/17/2022 3:57 PM Medications Administered Current Inpatient Medications Acetaminophen (Acetaminophen 325 Mg Tab) 650 mg PO Q6H [facility] Stop: 01/16/23 10:59 Last Admin: 12/17/22 16:59 Dose: 650 mg Enoxaparin Sodium (Enoxaparin Inj 30 Mg/0.3 Ml Syr) 30 mg SQ QAM [facility] Stop: 01/16/23 08:59 Last Admin: 12/17/22 08:00 Dose: 30 mg Promethazine HCl 6.25 mg/ (Sodium Chloride) 50.25 mls @ 201 mls/hr IV Q6H PRN PRN Reason: Nausea And Vomiting Stop: 01/16/23 02:58 Sodium Chloride (Nss 1000ml) 1,000 mls @ 50 mls/hr IV .Q20H [facility] Stop: 12/17/22 23:09 Last Admin: 12/17/22 03:35 Dose: 50 mls/hr Ceftriaxone Sodium 2,000 mg/ (Dextrose) 70 mls @ 100 mls/hr IV Q24H [facility]; Protocol Stop: 12/22/22 10:59 Last Infusion: 12/17/22 12:20 Dose: Infused Levothyroxine Sodium (Levothyroxine Sodium 88 Mcg Tablet) 88 mcg PO DAILYBB [facility] Stop: 01/16/23 06:29 Last Admin: 12/17/22 07:09 Dose: 88 mcg Lidocaine (Lidocaine 5% 1 Patch) 1 patch TD HS [facility] Stop: 01/17/23 20:59 Miscellaneous (Remove Lidoderm Patch) 1 each N/A DAILY@2100 [facility] Stop: 01/16/23 20:59 Miscellaneous (Remove Lidoderm Patch) 1 each N/A QAM [facility] Stop: 01/16/23 13:59 Last Admin: 12/17/22 15:04 Dose: 1 each Morphine Sulfate (Morphine Sulfate 2 Mg/Ml Carp) 2 mg IV Q3H PRN PRN Reason: Pain Stop: 12/31/22 02:58 Last Admin: 12/17/22 06:36 Dose: 2 mg Olanzapine (Olanzapine 10 Mg/2.1 Ml Sdv) 2.5 mg IM Q4H PRN PRN Reason: Anxiety/Agitation Stop: 01/16/23 03:08 Last Admin: 12/17/22 04:16 Dose: 2.5 mg Pantoprazole Sodium (Pantoprazole 40 Mg Tab) 40 mg PO DAILY [facility] Stop: 01/16/23 08:59 Last Admin: 12/17/22 08:00 Dose: 40 mg Propranolol HCl (Propranolol Hcl 60 Mg [place]) [facility]: 01/17/23 08:59 Tramadol HCl (Tramadol Hcl 50 Mg Tablet) 25 - 50 mg PO Q4H PRN PRN Reason: Pain Stop: 01/16/23 02:57
[2022-12-17] MEDS ORDERED: MELATONIN PO SCH (21:00)
[2022-12-18] MEDS: ACETAMINOPHEN 325 MG TAB PO SCH ×3 (04:22→17:34)
[2022-12-18] MEDS: LEVOTHYROXINE SODIUM 88 MCG TABLET PO SCH (06:04)
[2022-12-18 07:23] LABS: Calcium 8.7 mg/dl (8.6-10.3); Creatinine Clr Calc Pharmacy 49.2 ml/min; Est GFR (African American) 96.2 ml/min; Potassium 3.8 mmol/L (3.5-5.1)
[2022-12-18 07:31] LABS: Basophils # (auto) 0.04 K/uL (0-0.2); Basophils % (auto) 0.5 %; Eosinophils # (auto) 0.18 K/uL (0-0.50); Hematocrit (blood only) 41.9 % (37.0-47.0); Hemoglobin 14.2 g/dl (12.0-16.0); Immature Granulocytes # (auto) 0.03 K/uL (0.01-0.20); Immature Granulocytes % (auto) 0.3 %; Lymphocytes # (auto) 1.65 K/uL (1.2-3.4); Lymphocytes % (auto) 18.6 %; Mean Corpuscular Hgb Conc 33.9 g/dL (32.0-36.0); Mean Corpuscular Volume 91.5 fL (80.0-100.0); Mean Platelet Volume 10.6 fL (9.4-12.4); Monocytes # (auto) 1.02 K/uL (0.11-0.59); Monocytes % (auto) 11.5 %; Neutrophils # (auto) 5.95 K/uL (1.40-6.50); Neutrophils % (auto) 67.1 %; Platelet Count 195 K/uL (130-400); RDW Coefficient of Variation 14.2 % (11.5-14.5); RDW Standard Deviation 47.8 fL (36.4-46.3); Red Blood Count 4.58 M/uL (4.20-5.40); White Blood Count 8.87 K/ul (4.8-10.8)
[2022-12-18] MEDS: PANTOprazole 40 MG TAB PO SCH (07:51)
[2022-12-18] MEDS: ENOXAPARIN INJ 30 MG/0.3 ML SYR SQ SCH (07:52)
[2022-12-18] MEDS: PROPRANOLOL HCL 60 MG LA CAP PO SCH (08:37)
[2022-12-18] MEDS: traMADol HCL 50 MG TABLET PO PRN ×2 (08:51→18:11)
[2022-12-18] MEDS: OLANZapine 10 MG/2.1 ML SDV IM PRN (09:39)
[2022-12-18] MEDS: cefTRIAXone SODIUM 2,000 MG in DEXTROSE 5% 50 ML IV SCH (10:51)
[2022-12-18] MEDS: MoRPHine SULFATE 2 MG/ML CARP IV PRN (11:35)
--- NOTE | 2022-12-18 14:35 | Hospitalist Progress Note ---
Date of Service December 18, 2022 Assessment & Plan (1) Acute cystitis without hematuria: (2) Alzheimer's dementia: (3) Right rib fracture: (4) Fall: Plan 87-year-old female with history of dementia presented with fall and right rib fracture Gram-negative bacilli UTI- Started on Rocephin D2/5 pending urine culture result Fall with right rib fractures-[place] [facility] with no acute abnormality or fractures except for acute fracture of right posterior 11th and 12th rib. Patient denies pain during my encounter. Continue Lidoderm patch, Tylenol, incentive spirometer. Discussed with family at bedside regarding need for encouraging spirometer and deep breaths. Seen by PT OT Alzheimer's dementia-seen by neurology as outpatient, it was felt that addition of any medication like Aricept or Namenda would be futile. Not on any meds. Currently at baseline. Delirium precautions Hypothyroidism, acquired-continue Synthroid. DVT prophylaxis-subcu Lovenox Disposition- Transfer to [facility]. Dispo pending urine culture results. PT OT recommends rehab -CM following. Admission and Anticipated Discharge Date Admission Date: December 17, 2022 Subjective Patient was seen and examined at bedside. She is awake, alert, oriented to self, answering questions appropriately to the best of her ability, following commands. Denies any pain. No fever, chills, chest pain or shortness of breath no nausea or vomiting Review of Systems Review of Systems: All systems reviewed & are unremarkable except as noted in Subjective Physical Exam Physical Exam: General: Frail elderly female, sitting comfortably in bed, not in distress, on room air HEENT: PILY, MMSay. Intermittent left eye twitching which is chronic Chest: Clear breath sounds bilaterally, no wheezes or crackles CVS: Regular rate and rhythm, normal heart sounds, no murmur Abdomen: Soft, non tender, not distended, normal bowel sounds Neuro: Awake, alert, oriented, conversing well, non focal. Moving all extremities, follows commands Extremities: No cyanosis, clubbing or edema Psych: Calm, cooperative and not agitated Results & Data Results & Data Vital Signs (Past 12 Hours) Vital Signs Temp Pulse Pulse Resp BP Pulse Ox O2 Del Method 12/18/22 10:55 36.8 C 68 18 162/78 H 94 Room Air 12/18/22 08:00 68 12/18/22 07:30 36.7 C 76 19 175/90 H 94 Room Air Laboratory Results Short CBC 12/17/22 12/18/22 Range/Units 15:35 06:36 WBC 9.10 8.87 (4.8-10.8) K/ul Hgb 13.8 14.2 (12.0-16.0) g/dl Hct 41.3 41.9 (37.0-47.0) % Plt Count 176 195 (130-400) K/uL BMP 12/17/22 12/18/22 15:35 06:36 Sodium 139 141 Potassium 4.0 3.8 Chloride 108 H 108 H Carbon Dioxide 23 27 BUN 18 13 Creatinine 0.75 0.59 L Glucose 90 90 Calcium 8.7 8.7 Medications Administered Current Inpatient Medications Acetaminophen (Acetaminophen 325 Mg Tab) 650 mg PO Q6H ON LICENSE OF [facility] Stop: 01/16/23 10:59 Last Admin: 12/18/22 10:51 Dose: 650 mg Enoxaparin Sodium (Enoxaparin Inj 30 Mg/0.3 Ml Syr) 30 mg SQ QAM ON [facility] OF [facility] Stop: 01/16/23 08:59 Last Admin: 12/18/22 07:52 Dose: 30 mg Promethazine HCl 6.25 mg/ (Sodium Chloride) 50.25 mls @ 201 mls/hr IV Q6H PRN PRN Reason: Nausea And Vomiting Stop: 01/16/23 02:58 Ceftriaxone Sodium 2,000 mg/ (Dextrose) 70 mls @ 100 mls/hr IV Q24H ON LICENSE OF [facility]; Protocol Stop: 12/22/22 10:59 Last Infusion: 12/18/22 11:04 Dose: Infused Levothyroxine Sodium (Levothyroxine Sodium 88 Mcg Tablet) 88 mcg PO DAILYBB ON LICENSE OF [facility] Stop: 01/16/23 06:29 Last Admin: 12/18/22 06:04 Dose: 88 mcg Lidocaine (Lidocaine 5% 1 Patch) 1 patch TD HS [facility] Stop: 01/17/23 20:59 Miscellaneous (Remove Lidoderm Patch) 1 each N/A DAILY@2100 [facility] Stop: 01/16/23 20:59 Last Admin: 12/17/22 20:30 Dose: Not Given Miscellaneous (Remove Lidoderm Patch) 1 each N/A QAM ON [facility] Stop: 01/16/23 13:59 Last Admin: 12/18/22 07:52 Dose: Not Given Morphine Sulfate (Morphine Sulfate 2 Mg/Ml Carp) 2 mg IV Q3H PRN PRN Reason: Pain Stop: 12/31/22 02:58 Last Admin: 12/18/22 11:35 Dose: 2 mg Olanzapine (Olanzapine 10 Mg/2.1 Ml Sdv) 2.5 mg IM Q4H PRN PRN Reason: Anxiety/Agitation Stop: 01/16/23 03:08 Last Admin: 12/18/22 09:39 Dose: 2.5 mg Pantoprazole Sodium (Pantoprazole 40 Mg Tab) 40 mg PO DAILY [facility] Stop: 01/16/23 08:59 Last Admin: 12/18/22 07:51 Dose: 40 mg Propranolol HCl (Propranolol Hcl 60 Mg [place]) 60 mg PO QAM [facility] Stop: 01/17/23 08:59 Last Admin: 12/18/22 08:37 Dose: 60 mg Tramadol HCl (Tramadol Hcl 50 Mg Tablet) 25 - 50 mg PO Q4H PRN PRN Reason: Pain Stop: 01/16/23 02:57 Last Admin: 12/18/22 08:51 Dose: 25 mg
[2022-12-18] MEDS: ACETAMINOPHEN 500 MG TAB PO SCH (20:47)
--- NOTE | 2022-12-18 21:53 | Communication Note ---
Date of Service: December 18, 2022 Made aware by RN of uncontrolled blood pressure. SBP 140s to 180s since a.m. Heart rate 60s Patient confused but looks comfortable as per RN. AP Uncontrolled hypertension Add lisinopril to home beta-aisha Will relay to AM provider.
[2022-12-18] MEDS: lisinopril 2.5 MG TAB PO SCH (22:30)
[2022-12-18] MEDS: LIDOCAINE 5% 1 PATCH TD SCH (22:42)
[2022-12-19] MEDS: ACETAMINOPHEN 500 MG TAB PO SCH ×3 (05:39→21:08)
[2022-12-19] MEDS: LEVOTHYROXINE SODIUM 88 MCG TABLET PO SCH (05:39)
[2022-12-19 07:24] LABS: Hematocrit (blood only) 42.2 % (37.0-47.0); Hemoglobin 13.9 g/dl (12.0-16.0); Mean Corpuscular Hemoglobin 30.5 pg (25.0-34.0); Mean Corpuscular Hgb Conc 32.9 g/dL (32.0-36.0); Mean Corpuscular Volume 92.7 fL (80.0-100.0); Mean Platelet Volume 10.4 fL (9.4-12.4); Platelet Count 186 K/uL (130-400); RDW Coefficient of Variation 13.9 % (11.5-14.5); RDW Standard Deviation 47.5 fL (36.4-46.3); Red Blood Count 4.55 M/uL (4.20-5.40); White Blood Count 7.03 K/ul (4.8-10.8)
[2022-12-19 07:45] LABS: BUN Creatinine Ratio 21.9 (10-20); Calcium 8.6 mg/dl (8.6-10.3); Creatinine Clr Calc Pharmacy 45.3 ml/min; Est GFR (African American) 93.6 ml/min; Est GFR (Non-African American) 80.8 ml/min; Potassium 3.9 mmol/L (3.5-5.1)
[2022-12-19] MEDS: ENOXAPARIN INJ 40 MG/0.4 ML SYR SQ SCH (09:11)
[2022-12-19] MEDS: cefTRIAXone SODIUM 2,000 MG in DEXTROSE 5% 50 ML IV SCH (10:24)
[2022-12-19] MEDS: PROPRANOLOL HCL 60 MG LA CAP PO SCH (10:24)
[2022-12-19] MEDS: PANTOprazole 40 MG TAB PO SCH (10:24)
--- NOTE | 2022-12-19 10:33 | Hospitalist Progress Note ---
Date of Service December 19, 2022 Assessment & Plan (1) Acute cystitis without hematuria: (2) Alzheimer's dementia: (3) Right rib fracture: (4) Fall: Plan 87-year-old female with history of dementia presented with fall and right rib fracture E. coli UTI Currently on ceftriaxone day 3/ Urine culture reviewed. Pansensitive Change to cefdinir to complete therapy Fall Right rib fractures [place] [facility] with no acute abnormality or fractures except for acute fracture of right posterior 11th and 12th rib. No complaints today Continue Lidoderm patch, Tylenol, incentive spirometer. Discussed with family at bedside regarding need for encouraging spirometer and deep breaths. Seen by PT OT Alzheimer's dementia- Follows neurology as outpatient Not on any meds. Currently at baseline. Delirium precautions Hypothyroidism Continue Synthroid. DVT prophylaxis-subcu Lovenox Disposition- PT/OT recommend SNF. CM to work on placement I spent a total of 45 minutes coordinating, documenting and providing care for this patient excluding time spent in performance of separately billed services Admission and Anticipated Discharge Date Admission Date: December 18, 2022 Subjective 87 year old woman with h/o hypertension, dementia, mood disorder, hypothyroidism, prediabetes who presented with fall at home with right sided chest pain. Patient seen and examined today. She currently denies any complaints She is alert and oriented to person only ROS limited due to dementia Physical Exam Constitutional: + well hydrated; no acute distress Elderly woman Eyes: PERRL, conjunctivae normal, anicteric sclerae ENMT: external ear and nose normal, oropharynx normal Respiratory: normal respiratory effort, lungs clear to auscultation Cardiovascular: Rate/Rhythm: regular rate and regular rhythm S1 S2 Gastrointestinal (Abdomen): normal bowel sounds, soft, nontender, no hepatosplenomegaly Musculoskeletal: No pedal edema Neurologic: PERRL, EOMI, accommodation nl, no face palsy, no dysarthria Psychiatric: Alert and oriented to person only, cooperative Results & Data Results & Data Vital Signs (Past 12 Hours) Vital Signs Temp Pulse Resp BP BP Pulse Ox O2 Del Method 12/19/22 07:23 37.1 C 73 16 138/74 96 Room Air 12/19/22 06:39 36.7 C 54 L 18 133/74 96 Room Air Laboratory Results Abnormal lab results 12/19/22 12/19/22 Range/Units 06:47 06:47 RDW Std Deviation 47.5 H (36.4-46.3) fL BUN/Creatinine Ratio 21.9 H (10-20)
[2022-12-19] MEDS: lisinopril 2.5 MG TAB PO SCH (21:08)
[2022-12-19] MEDS: LIDOCAINE 5% 1 PATCH TD SCH (21:08)
[2022-12-19] MEDS: MoRPHine SULFATE 2 MG/ML CARP IV PRN (21:15)
--- NOTE | 2022-12-19 22:46 | Electrocardiogram Report ---
Test Reason : Blood Pressure : / mmHG Vent. Rate : 060 BPM Atrial Rate : 060 BPM P-R Int : 146 ms QRS Dur : 086 ms QT Int : 462 ms P-R-T Axes : 032 -04 032 degrees QTc Int : 462 ms Normal sinus rhythm with sinus arrhythmia Normal ECG When compared with ECG of 07-SEP-2022 03:27, Premature supraventricular complexes are no longer Present Nonspecific T wave abnormality, improved in Inferior leads Confirmed by Steven Sewell ([id number]) on 12/19/2022 10:45:25 PM Referred By: REFERRED SELF Confirmed By:Steven Sewell
[2022-12-20] MEDS: MoRPHine SULFATE 2 MG/ML CARP IV PRN ×2 (02:31→20:42)
[2022-12-20] MEDS: LEVOTHYROXINE SODIUM 88 MCG TABLET PO SCH (06:25)
[2022-12-20] MEDS: ACETAMINOPHEN 500 MG TAB PO SCH ×3 (06:25→21:44)
[2022-12-20] MEDS: PROPRANOLOL HCL 60 MG LA CAP PO SCH (08:32)
[2022-12-20] MEDS: PANTOprazole 40 MG TAB PO SCH (08:32)
[2022-12-20] MEDS: CEFDINIR 300 MG CAP PO SCH ×2 (08:32→20:31)
[2022-12-20] MEDS: ENOXAPARIN INJ 40 MG/0.4 ML SYR SQ SCH (08:33)
[2022-12-20 08:46] LABS: Hematocrit (blood only) 45.5 % (37.0-47.0); Hemoglobin 15.8 g/dl (12.0-16.0); Mean Corpuscular Hemoglobin 31.1 pg (25.0-34.0); Mean Corpuscular Hgb Conc 34.7 g/dL (32.0-36.0); Mean Corpuscular Volume 89.6 fL (80.0-100.0); Mean Platelet Volume 10.6 fL (9.4-12.4); Platelet Count 237 K/uL (130-400); RDW Coefficient of Variation 13.9 % (11.5-14.5); RDW Standard Deviation 45.7 fL (36.4-46.3); Red Blood Count 5.08 M/uL (4.20-5.40); White Blood Count 10.28 K/ul (4.8-10.8)
[2022-12-20 08:54] LABS: BUN Creatinine Ratio 26.9 (10-20); Calcium 9.1 mg/dl (8.6-10.3); Creatinine Clr Calc Pharmacy 43.3 ml/min; Est GFR (African American) 92.2 ml/min; Est GFR (Non-African American) 79.6 ml/min; Potassium 3.9 mmol/L (3.5-5.1)
--- NOTE | 2022-12-20 14:03 | Hospitalist Progress Note ---
Date of Service December 20, 2022 Assessment & Plan (1) Acute cystitis without hematuria: (2) Alzheimer's dementia: (3) Right rib fracture: (4) Fall: Plan 87-year-old female with history of dementia presented with fall and right rib fracture E. coli UTI Urine culture reviewed. Pansensitive Currently on cefdinir to complete therapy Fall Right rib fractures [place] [facility] with no acute abnormality or fractures except for acute fracture of right posterior 11th and 12th rib. Denies any chest wall pain Continue Lidoderm patch, Tylenol, incentive spirometer. Alzheimer's dementia Follows neurology as outpatient Not on any meds. Currently at baseline. Delirium precautions Redirect as needed Zyprexa 2.5mg daily prn Hypothyroidism Continue Synthroid. DVT prophylaxis-subcu Lovenox Disposition- PT/OT recommend SNF. CM to work on placement I spent a total of 35 minutes coordinating, documenting and providing care for this patient excluding time spent in performance of separately billed services at bedside, updated Admission and Anticipated Discharge Date Admission Date: December 18, 2022 Subjective Patient seen and examined ROS limited due to dementia RN reported patient was agitated overnight and this morning. She became calm once arrived this morning. She denied any complaints Physical Exam Constitutional: + well hydrated; no acute distress Eyes: PERRL, conjunctivae normal, anicteric sclerae ENMT: external ear and nose normal, oropharynx normal Respiratory: normal respiratory effort, lungs clear to auscultation Cardiovascular: Rate/Rhythm: regular rate and regular rhythm S1 S2 Gastrointestinal (Abdomen): normal bowel sounds, soft, nontender, no hepatosplenomegaly Musculoskeletal: No pedal edema Neurologic: PERRL, EOMI, accommodation nl, no face palsy, no dysarthria Psychiatric: Alert and oriented to person only. Currently pleasant and cooperative Results & Data Results & Data Vital Signs (Past 12 Hours) Vital Signs Temp Pulse Resp BP Pulse Ox O2 Del Method 12/20/22 06:20 36.5 C 68 18 159/90 H 97 Room Air Laboratory Results Abnormal lab results 12/20/22 Range/Units 08:14 BUN/Creatinine Ratio 26.9 H (10-20) Glucose 125 H (70-99(Fasting)) mg/dl
[2022-12-20] MEDS ORDERED: OLANZAPINE 2.5 MG TAB PO PRN (16:07)
[2022-12-20] MEDS: lisinopril 2.5 MG TAB PO SCH (20:31)
[2022-12-20] MEDS: LIDOCAINE 5% 1 PATCH TD SCH (20:32)
[2022-12-20] MEDS ORDERED: OLANZapine 10 MG/2.1 ML SDV IM STA (21:21)
[2022-12-20] MEDS ORDERED: OLANZapine 10 MG/2.1 ML SDV IM PRN (21:24)
[2022-12-20] MEDS ORDERED: OLANZapine 10 MG/2.1 ML SDV IM ONE (21:31)
[2022-12-21] MEDS: MoRPHine SULFATE 2 MG/ML CARP IV PRN ×2 (05:45→11:19)
[2022-12-21] MEDS: ACETAMINOPHEN 500 MG TAB PO SCH (05:46)
[2022-12-21] MEDS: LEVOTHYROXINE SODIUM 88 MCG TABLET PO SCH (05:46)
[2022-12-21] MEDS: CEFDINIR 300 MG CAP PO SCH (09:30)
[2022-12-21] MEDS: PROPRANOLOL HCL 60 MG LA CAP PO SCH (09:30)
[2022-12-21] MEDS: PANTOprazole 40 MG TAB PO SCH (09:30)
[2022-12-21] MEDS: ENOXAPARIN INJ 40 MG/0.4 ML SYR SQ SCH (09:32)
[2022-12-21 09:46] LABS: Creatinine Clr Calc Pharmacy 47.3 ml/min; Est GFR (African American) 95.1 ml/min; Est GFR (Non-African American) 82.1 ml/min
[2022-12-21] MEDS ORDERED: COVID19 BIVALENT Vaccine (Pfizer) 30mcg/0.3mL SDV IM ONE (11:17)
--- NOTE | 2022-12-21 13:24 | Discharge Summary ---
Date of Service December 21, 2022 Admission HPI Per Admitting Provider History obtained from patient, family, and records. Limited history from patient secondary to dementia. Medical history significant for hypertension, dementia, mood disorder, hypothyroidism, prediabetes. Patient fell at home last night in her bedroom. May have tripped/tangled herself on her pajamas as per family. Episode witnessed by patient's . Possible head trauma without LOC. No syncope. Achy right-sided chest/back pain. Patient brought to the ER for evaluation. Highest SBP of 180s noted at the ER. Medical History as above Surgical History : Botox injections for eyelids, dental surgery, BTL, AMRIK, cataract surgery, carpal tunnel release Family History : Heart disease, DM, colon cancer, leukemia, COPD, stroke Personal/Social history : Non-smoker, no EtOH intake, retired [employer] employee Admission Exam Per Admitting Provider GENERAL: Comfortable, pleasantly demented, no respiratory distress SKIN: Normal color, warm HEENT: [place] palpebral conjunctivae, right upper eyelid erythema, dry buccal mucosa NECK : Supple, no tenderness CHEST : CTA, right chest wall tenderness HEART : RRR, no obvious murmurs ABDOMEN: no distention, nontender EXTREMITIES : No LE swelling/tenderness, no other conspicuous deformities noted NEUROLOGIC : Demented, no facial asymmetry, involuntary twitching of the left upper and lower eyelids, No other gross focality Principal Diagnosis Fall Right rib fractures Urinary tract infection Dementia Discharge Exam Constitutional + well hydrated; no acute distress Eyes PERRL, conjunctivae normal, anicteric sclerae ENMT external ear and nose normal, oropharynx normal Respiratory normal respiratory effort, lungs clear to auscultation Cardiovascular Rate/Rhythm: regular rate and regular rhythm S1 S2 Gastrointestinal (Abdomen) normal bowel sounds, soft, nontender, no hepatosplenomegaly Musculoskeletal No pedal edema Neurologic PERRL, EOMI, accommodation nl, no face palsy, no dysarthria Psychiatric Alert and oriented to person only Discharge Data Allergies Allergy/AdvReac Type Severity Reaction Status Date / Time Penicillins Allergy Unknown CAN'T Verified 12/17/22 02:21 REMEMBER Consultations 12/17/22 01:58 ED Decision to Admit Stat Ordered Studies 12/16/22 23:48 CT abd pelvis IV con only Stat CT cervical spine wo con Stat CT chest diagnostic w con Stat CT head/brain wo con Stat CT lumbar spine w con Stat CT thoracic spine w con Stat 12/17/22 15:26 CT head/brain wo con Stat Hospital Course (1) Acute cystitis without hematuria: (2) Alzheimer's dementia: (3) Right rib fracture: (4) Fall: Plan 87-year-old female with history of dementia presented with fall and right rib fracture E. coli UTI Urine culture reviewed. Pansensitive Currently on cefdinir to complete therapy Fall Right rib fractures [place] CT with no acute abnormality or fractures except for acute fracture of right posterior 11th and 12th rib. Denies any chest wall pain Prn tylenol Alzheimer's dementia Follows neurology as outpatient Not on any meds. Currently at baseline. Delirium precautions Redirect as needed Zyprexa 2.5mg daily prn agitation Hypothyroidism Continue Synthroid. Total Time Total Time Spent Total Time Spent (In Minutes): 40 Total Time Includes: Examination of the Patient, Discharge Planning, Medication Reconciliation and Other (Called daughter and updated her) Discharge Plan Discharge Items Patient Disposition: Transfer Snf Fac Reason For Visit: Fall Discharge Diagnosis: Fall Right rib fractures Urinary tract infection Dementia Activity: As commented below Activity Comment: As recommended by PT Non-emergency contact: Primary Care Provider Call non-emergency contact if: you have any medication questions and your symptoms worsen Follow-up/Referrals: Radha Roque, [Primary Care Provider] - Diet: Heart Healthy Addtl Attending Provider Instructions: Mrs Mejia You were brought to the hospital after a fall. You were evaluated and managed for the above listed diagnoses. You are being discharged to [facility]. Please complete remaining days of antibiotics and follow up with your Primary Doctor It was a pleasure taking care of you. Pending Studies at Discharge: No Stand-Alone Forms: My [facility] Skilled Items Patient informed of condition?: Yes DNR: No Discharge Level of Care: Skilled Communicable Disease: No Discharge Prognosis: Stable Lines: None Urinary Catheter: No Medications and DC Order Prescriptions: New olanzapine 2.5 mg Tablet 2.5 mg PO DAILY PRN (Reason: agitation) Qty: 30 0RF acetaminophen [Tylenol Extra Strength] 500 mg Tablet 1,000 mg PO Q8H PRN (Reason: Pain) Qty: 60 0RF cefdinir 300 mg Capsule 300 mg PO BID 3 Days Qty: 6 0RF melatonin 3 mg tablet 3 mg PO HS Qty: 30 0RF psyllium husk [Metamucil] 0.4 gram capsule 0.4 g PO DAILY Qty: 30 0RF Continued propranolol 60 mg capsule,extended release 24 hr 60 mg PO QAM 30 Days Qty: 30 0RF levothyroxine 88 mcg Tablet 88 mcg PO DAILY Qty: 30 0RF omeprazole 20 mg Tablet,Delayed Release (Dr/Ec) 20 mg PO DAILY Qty: 30 0RF Discontinued Melatonin Chew 1 tab PO HS Metamucil Chew 1 tab PO DAILY Discharge Orders: Discharge Order (Routine); Ordered 12/21/22 Ordered By: Beena Contreras Admission Data Admit Date/Time: 12/18/22 14:33 Attending Provider: Beena Contreras I. Admit Provider: Xavier Canchola Primary Care Provider: Radha Roque Other Providers: Xavier Canchola ; Denny Conn ; [facility] Other Interventions: Discharge Summary Assessment (RN) Last Done: 12/21/22 14:45
== END 2022-12-21 15:15 | DRG 184 ==
LOC: ED 23:04 → 2S 23:04 → 2N 12-18 14:21 → SUATTDRO 12-18 14:33